=== PATIENT | male | born 1980 | race Caucasian/White ===

== ENCOUNTER 2017-08-30 07:58 | Emergency (ER) | payer OTHER, SELFPAY ==
[2017-08-30] MEDS ORDERED: AMOXicillin 250 MG CAP ONE (08:48)
[2017-08-30] MEDS ORDERED: Benzonatate 100 MG CAP ONE (08:48)
== END 2017-08-30 08:57 | disposition home or self-care (01) ==
LOC: MADERS 07:58
DX: J20.9 Acute bronchitis, unspecified (principal)
CPT/HCPCS: 99283